=== PATIENT | female | born 1960 | race Caucasian/White ===

== ENCOUNTER 2017-03-07 08:46 | Emergency (ER) | payer OTHER ==
[~2017-03-07] VITALS: Ht 157.5 cm; Wt 67.1 kg
[~2017-03-07 08:46] MED LIST: BACTRIM 400 MG-1 TAB PO; CIPRO 500MG TA500 MG PO; KEFLEX500 M1 PO; PYRIDIUM100 MG PO
[2017-03-07] MEDS ORDERED: NAPROXEN SODIU500 MG PO (09:13)
[2017-03-07] MEDS ORDERED: MEDROL 4MG. DOSE4 MG PO (09:13)
--- NOTE | 2017-03-07 09:13 | Emergency Room Report ---
History of Present Illness Time Seen by [id number] Presenting Problem in Triage Pt arrived:Walked Presenting Problem:PT C/O LLE PAIN THAT BEGAN YESTERDAY WHEN SHE WOKE UP. 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 N Clinical Suspician of Infection? N Mental Status: 1 - Regular (Normal Baseline) Sepsis Risk:Low Sepsis Risk Have you (or family members/close friends) recently traveled outside the [place]? N If Yes, where/when: Have you had exposure to infectious disease within the past month? N TB? Other? 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 Has had knee replacement on left remotely (cannot recall name of orthopedist) and baseline cannot fully flex her left knee. No knee pain today. ALLERGIES Coded Allergies: No Known Allergies (08/23/15) Home Medications Active Scripts SULFAMETHOXAZOLE/TRIMETHOPRIM (Bactrim 400-80 MG Tablet) 1 TAB PO BID 10 Days Prov: 08/23/15 Cephalexin (Keflex 500MG) 500 MG PO QID 10 Days Prov: 08/23/15 History Medical History General CAD? No Angina: No [place]: No Hypertension? No Hyperlipidemia? No CHF? No DVT? No PE? No COPD? No Asthma? No Anemia? No GERD? No Gastric ulcers? No GI Bleed? No Hernia? No Thyroid Problems? No Hypothyroidism? No CVA? No Seizures? No Diabetes? No Renal Insuffiency? No End Stage Renal Disease? No UTI? Yes Stones? No BPH? No GB Disease: No Nephritic Syndrome? No Asplenia? No Hepatitis? No Sickle Cell Disease? No Arthritis? No Migraines? No Cataracts? No Glaucoma? No MRSA? No HIV? No TB? Yes Anxiety? No Depression? No Cancer? No More? 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 LMP N/A Family History Family Hx Diabetes Yes CAD Yes Hypertension Yes Hyperlipidemia Yes Cancer Yes TB Yes Social History Smoking Hx Smoker: Current Every Day Smoker Tobacco: Yes Type Cigarettes Packs/day < 1 Pack Alcohol Alcohol: No Review of Systems All Other Systems Reviewed and Negative Musculoskeletal see HPI Physical Exam Vital Signs Vital Signs Date Time Temp Pulse Resp B/P Pulse O2 O2 Flow FiO2 Ox Delivery Rate 03/07 0853 98.2 94 18 132/83 96 General Appearance normal appearance, WD/WN, no apparent distress Eye Exam - bilateral eye normal exam, bilateral eye PERRL, bilateral eye EOMI Respiratory Status Yes: trachea midline, chest symmetrical, non tender chest. No: respiratory distress, tender on palpation, use of accessory muscles, pain on inspiration, pain on expiration, productive cough, non productive cough. Lung Sounds bilateral: normal breath sounds. left: lungs clear. Cardiovascular no peripheral edema, normal peripheral pulses Peripheral Pulses Pulses normal Yes Extremities normal range of motion, normal inspection, normal capillary refill, no calf tenderness, no pedal edema, Old scar, left knee, c/w hx replacement; no ballottement or laxity of knee on left; has pain to tendon lateral to left tibia with no edema, pain reproducible by dorsiflexion of left foot; Achilles tendon normal to palpation; good ROM left foot and toes and distally n/v intact with warm and well perfused foot; neg ropiness; neg Nora's; neg calf tenderness on palpation. 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 No Departure Departure Time of Disposition 09 Disposition DC Home or Self Care(routine) Clinical Impression Primary Impression: Anterior tibialis tendinitis of left leg Condition STABLE Referrals Zoey POLLARD [facility]AY Patient Instructions DI for Tendinitis Additional Instructions Rx Naproxen do NOT take Ibuprofen with this medication! Never take more than 800 mg of Ibuprofen every six hours due to risk for kidney/GI side effects. Rx Solumedrol. See Dr. Pollard in three to seven days for recheck; sit down work until cleared by Dr. Pollard. Discharge Counseling Counseled pt/family regarding medications/RX, home care, follow up needs Prescriptions Current Visit Scripts NAPROXEN (NAPROXEN 500MG TAB) 500 MG PO BIDP PRN pain #20 TAB Methylprednisolone (Medrol Dose Jonn) 4 MG PO UD #1 JONN TAKE DIRECTED ON PACKAGING ED Critical Care Critical Care No at 0913
--- NOTE | 2017-03-07 09:13 | Emergency Room Report ---
History of Present Illness Time Seen by [id number] Presenting Problem in Triage Pt arrived:Walked Presenting Problem:PT C/O LLE PAIN THAT BEGAN YESTERDAY WHEN SHE WOKE UP. 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 N Clinical Suspician of Infection? N Mental Status: 1 - Regular (Normal Baseline) Sepsis Risk:Low Sepsis Risk Have you (or family members/close friends) recently traveled outside the [place]? N If Yes, where/when: Have you had exposure to infectious disease within the past month? N TB? Other? 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 Has had knee replacement on left remotely (cannot recall name of orthopedist) and baseline cannot fully flex her left knee. No knee pain today. ALLERGIES Coded Allergies: No Known Allergies (08/23/15) Home Medications Active Scripts SULFAMETHOXAZOLE/TRIMETHOPRIM (Bactrim 400-80 MG Tablet) 1 TAB PO BID 10 Days Prov: 08/23/15 Cephalexin (Keflex 500MG) 500 MG PO QID 10 Days Prov: 08/23/15 History Medical History General CAD? No Angina: No [place]: No Hypertension? No Hyperlipidemia? No CHF? No DVT? No PE? No COPD? No Asthma? No Anemia? No GERD? No Gastric ulcers? No GI Bleed? No Hernia? No Thyroid Problems? No Hypothyroidism? No CVA? No Seizures? No Diabetes? No Renal Insuffiency? No End Stage Renal Disease? No UTI? Yes Stones? No BPH? No GB Disease: No Nephritic Syndrome? No Asplenia? No Hepatitis? No Sickle Cell Disease? No Arthritis? No Migraines? No Cataracts? No Glaucoma? No MRSA? No HIV? No TB? Yes Anxiety? No Depression? No Cancer? No More? 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 LMP N/A Family History Family Hx Diabetes Yes CAD Yes Hypertension Yes Hyperlipidemia Yes Cancer Yes TB Yes Social History Smoking Hx Smoker: Current Every Day Smoker Tobacco: Yes Type Cigarettes Packs/day < 1 Pack Alcohol Alcohol: No Review of Systems All Other Systems Reviewed and Negative Musculoskeletal see HPI Physical Exam Vital Signs Vital Signs Date Time Temp Pulse Resp B/P Pulse O2 O2 Flow FiO2 Ox Delivery Rate 03/07 0853 98.2 94 18 132/83 96 General Appearance normal appearance, WD/WN, no apparent distress Eye Exam - bilateral eye normal exam, bilateral eye PERRL, bilateral eye EOMI Respiratory Status Yes: trachea midline, chest symmetrical, non tender chest. No: respiratory distress, tender on palpation, use of accessory muscles, pain on inspiration, pain on expiration, productive cough, non productive cough. Lung Sounds bilateral: normal breath sounds. left: lungs clear. Cardiovascular no peripheral edema, normal peripheral pulses Peripheral Pulses Pulses normal Yes Extremities normal range of motion, normal inspection, normal capillary refill, no calf tenderness, no pedal edema, Old scar, left knee, c/w hx replacement; no ballottement or laxity of knee on left; has pain to tendon lateral to left tibia with no edema, pain reproducible by dorsiflexion of left foot; Achilles tendon normal to palpation; good ROM left foot and toes and distally n/v intact with warm and well perfused foot; neg ropiness; neg Nora's; neg calf tenderness on palpation. 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 No Departure Departure Time of Disposition 09 Disposition DC Home or Self Care(routine) Clinical Impression Primary Impression: Anterior tibialis tendinitis of left leg Condition STABLE Referrals Zoey POLLARD RAY Patient Instructions DI for Tendinitis Additional Instructions Rx Naproxen do NOT take Ibuprofen with this medication! Never take more than 800 mg of Ibuprofen every six hours due to risk for kidney/GI side effects. Rx Solumedrol. See Dr. Pollard in three to seven days for recheck; sit down work until cleared by Dr. Pollard. Discharge Counseling Counseled pt/family regarding medications/RX, home care, follow up needs Prescriptions Current Visit Scripts NAPROXEN (NAPROXEN 500MG TAB) 500 MG PO BIDP PRN pain #20 TAB Methylprednisolone (Medrol Dose Jonn) 4 MG PO UD #1 JONN TAKE DIRECTED ON PACKAGING ED Critical Care Critical Care No at 0913
[2017-03-07 09:20] VITALS: BP 132/83
== END 2017-03-07 09:34 | disposition home or self-care (01) ==
LOC: ER 08:46
DX: M76.812 Anterior tibial syndrome, left leg (principal); Z72.0 Tobacco use